=== PATIENT | female | born 1985 | race Caucasian/White ===

== ENCOUNTER → 2018-06-17 | Outpatient (CLI) | payer OTHER | LOC: FIMAGING 16:16 | PROVIDERS: ATTEND Registered Nurse | DX: Z34.91 Encounter for supervision of normal pregnancy, unspecified, first trimester (principal); Z3A.01 Less than 8 weeks gestation of pregnancy ==

== ENCOUNTER → 2018-09-27 | Outpatient (CLI) | payer OTHER | LOC: FIMAGING 13:17 | PROVIDERS: ATTEND Advanced Practice Midwife | DX: O09.292 Supervision of pregnancy with other poor reproductive or obstetric history, second trimester (principal); Z3A.21 21 weeks gestation of pregnancy ==

== ENCOUNTER 2019-01-04 18:00 | Observation (INO) | payer OTHER ==
--- NOTE | 2019-01-04 20:21 | PDGENHP ---
History and Physical History and Physical: CARE: [facility] HPI: Patient is a 33 yo at 35/1 weeks ega who presents to L&D with complaints of vaginal spotting off and on today. She noticed some brown spotting around 0600 this am when she wiped then again a little later in the morning. She had one other time when she had some more pink/red on toilet tissue after a bowel movement. She has noticed increased jovana kate contractions today, rates 2/10 for discomfort. She was seen this afternoon at the center for an NST and sent home to rest. She called earlier this evening with concerns about increased jovana kate and last episode of pink/ red spotting on toilet tissue. She was sent to be evaluated here by the reconciler at the center. Contractions have been every 3 - 5 minutes while here on the monitor - palpate mild. No vaginal bleeding has been noted. She reports good activity, denies LOF. Last had intercourse Wednesday. EDC: 02/07/19 which is based on LMP: 05/03/19 which is known and consistent with Ultrasound at 10 weeks. Her is complicated by: - h/o term in 2017- trisomy 13 baby - 3 days after - h/o of anxiety/PTSD - sees therapist - [place] Review of Systems: Constitutional: Denies any fever, chills, or fatigue HEENT: denies any visual changes, difficulty swallowing, hearing loss Cardiovascular: Denies any chest pain, palpitations, leg swelling Respiratory: denies any cough, wheezing, or shortness of breathe GI: Denies any nausea, vomiting, diarrhea, constipation : denies any dysuria, urgency, frequency, vaginal bleeding Musculoskeletal: denies any muscle or bone pain Skin: denies any rashes Neuro: denies any headache, seizures, lightheadedness, dizziness, or loss of consciousness Psychiatric: denies any depression, anxiety, or SI/HI thoughts HISTORY: Previous OB history: SAB X2, 2016 - baby with trisomy 13 - 3 days after Past medical history: [place], h/o anxiety/PTSD - not medicated Past surgical history: 2000 - tonsillectomy, 2002 - laparoscopy, 2015 hernia repair Medications: PNV Allergies (list reaction): gluten LABS: Rh: O pos ABS: Neg Rubella: Immune HbsAg: NR HIV: NR VDRL: NR 1hr: not available GC: Neg Chlamydia: Neg Pap: Normal PHYSICAL EXAM: Constitutional: WN, A&Ox3 HEENT: normocephalic atraumatic, supple Heart: RRR, no murmur Chest: CTA-B Abdomen: Soft, nontender, gravid Speculum exam: no blood or active bleeding noted in vaginal vault/cervix SVE: ft/50/-2 Extremities: sct edema, negative miriam's sign Neuro: grossly normal Psych: normal affect assessment: Reassuring FHTs, baseline 140s +accels, no decels, moderate variability Contractions: toco q 3-5 mild Assessment: 1) 33 yo G 4 P 1 with IUP@ 35.1 weeks with h/o of intermittent spotting today and some mild irregular cntx 2) No bleeding noted at this time - sterile spec exam shows no active bleeding or evidence of bleeding. 3) Cervix unchanged after 1.5 hour labor check 4) Cat 1 FHR tracing Plan: 1) Discharge home with PTL, bleeding precautions, FKCs. 2) Follow up at center for routine OB visit. 3) Call with more bleeding, regular, painful contractions, LOF, decreased movement. 4) Patient verbalizes understanding and feels comfortable with POC.
== END 2019-01-04 20:45 | disposition home or self-care (01) ==
LOC: FLD 18:00
PROVIDERS: ADMIT Advanced Practice Midwife; ATTEND Advanced Practice Midwife
DX: O60.03 Preterm labor without delivery, third trimester (principal); Z3A.35 35 weeks gestation of pregnancy
CPT/HCPCS: G0378